=== PATIENT | female | born 1995 | race Asian ===

== ENCOUNTER 2020-05-19 10:00 | Inpatient (IN) | payer OTHER ==
[~2020-05-19] VITALS: Ht 167.6 cm; Wt 60.0 kg
[2020-05-19] MEDS ORDERED: DOXY1CAP60 PO (10:22)
[2020-05-19 11:19] LABS: HEMOGLOBIN 10.9 g/dl (12.0-15.5); MEAN CORPUSCULAR HEMOGLOBIN 19.5 pg (27.0-33.0); MEAN CORPUSCULAR HGB CONC 30.3 g/dl (32.0-36.5); MEAN CORPUSCULAR VOLUME 64.3 fl (80.0-96.0); PLATELET COUNT, AUTOMATED 268 10^3/uL (150-450); WHITE BLOOD COUNT 6.1 10^3/uL (4.0-10.0)
[2020-05-19 11:40] LABS: HCG, SERUM QUALITATIVE NEGATIVE (NEGATIVE)
[2020-05-19 11:51] LABS: ALBUMIN 4.2 GM/DL (3.2-5.2); ALT/SGPT 16 U/L (12-78); BILIRUBIN,DIRECT 0.2 MG/DL (0.0-0.2); BILIRUBIN,TOTAL 0.9 MG/DL (0.2-1.0); BLOOD UREA NITROGEN 15 MG/DL (7-18); CALCIUM LEVEL 9.4 MG/DL (8.5-10.1); CARBON DIOXIDE LEVEL 24 MEQ/L (21-32); CHLORIDE LEVEL 107 MEQ/L (98-107); CREATININE FOR GFR 0.73 MG/DL (0.55-1.30); ETHYL ALCOHOL (ETHANOL) < 0.003 % (0.000-0.010); GLOMERULAR FILTRATION RATE > 60.0 (>60); GLUCOSE, FASTING 70 MG/DL (70-100); POTASSIUM SERUM 3.9 MEQ/L (3.5-5.1); SALICYLATE LEVEL < 1.7 MG/DL (5.0-30.0); SODIUM LEVEL 139 MEQ/L (136-145); TOTAL PROTEIN 7.5 GM/DL (6.4-8.2)
[2020-05-19 11:59] LABS: ACETAMINOPHEN LEVEL < 2.0 UG/ML (10.0-30.0)
[2020-05-19 14:23] LABS: AMPHETAMINES LEVEL URINE NEGATIVE (NEGATIVE); BARBITURATES URINE NEGATIVE (NEGATIVE); BENZODIAZEPINES URINE NEGATIVE (NEGATIVE); CANNABINOIDS URINE NEGATIVE (NEGATIVE); COCAINE METABOLITE URINE NEGATIVE (NEGATIVE); METHADONE URINE NEGATIVE (NEGATIVE); OPIATES URINE NEGATIVE (NEGATIVE); PHENCYCLIDINE URINE NEGATIVE (NEGATIVE)
[2020-05-19] MEDS ORDERED: MAALOX 30 ML SUSP *UDC PO PRN (18:35)
[2020-05-19] MEDS ORDERED: MOM 30ML SUSPENSION UDC PO PRN (18:35)
[2020-05-19] MEDS ORDERED: ACETAMINOPHEN TAB 650MG DOSE (2X325MG) PO PRN (18:35)
[2020-05-19 20:04] VITALS: BP 103/59
[2020-05-20] MEDS: traZODone 50 MG TAB PO PRN (00:18)
[2020-05-20 06:41] VITALS: BP 104/55
--- NOTE | 2020-05-20 10:53 | MHHPE ---
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 HISTORY OF PRESENT ILLNESS: Patient reported that she has been stressed out at work because of a lot of work, unable to complete and there is no help provided to her. She is sleep deprived. She reportedly told people that she would hang herself because of depression due to overwork. Patient was admitted to a hospital in [place] about a month ago and she was discharged Pt thinks she was prescribed no medications . Currently her sleep is poor. Her energy level is low. She talks fast. Denies any manic episodes. Denies grandiosity, racing thoughts, however, she is easily irritable. Denies any impulsive behavior. Denies any psychotic symptoms or anxiety. PAST PSYCHIATRIC HISTORY: She was hospitalized once about a month ago for suicidal ideation. Denies taking any medications. SUBSTANCE ABUSE HISTORY: Denies use of alcohol or any drugs. SUICIDAL HISTORY: Denies suicidal attempts in the past. PAST MEDICAL HISTORY: Denies medical issues. Denies any history of head injury, seizure disorder. FAMILY HISTORY: Denies history of mental illness. PERSONAL HISTORY: She was born in [place], [place], and raised in [place]. She completed college graduation. She has two sisters. No history of abuses. MENTAL STATUS EXAMINATION: She is a thin built, of average height, female. Cooperative, however, easily irritable, somewhat angry at times and tearful at times. Speech is pressured, circumstantial. Psychomotor activity is normal. Made good eye contact. Mood is depressed. Affect is labile. Thought content preoccupied with helplessness, hopelessness, however, denied any suicidal thoughts. Insight and judgment are limited. Memory immediate, remote, recent are good. VITALS: Blood pressure 104/55, temperature 97.2, pulse 53, pulse oximetry 100%. LABS: CBC within normal limits. Hemoglobin 11; slightly low. CMP within normal limits. HCG negative. Toxicology was negative. REVIEW OF SYSTEMS: Constitutional: Denied any night sweats, fever. HEENT: Denies headache, sore throat, epistaxis. Respiratory: Denies any shortness of breath or cough. CVS: Denied chest pain or palpitations. Gastroenterology: Denied any pain. Genitourinary: Patient denies any hematuria or dysuria. Neurology: Denies any headache, dizziness or numbness. Bones and Joints: Normal. DIAGNOSIS: Depressive disorder NOS, rule out major depressive disorder. PLAN: Ad[facility]. She will be seen by hospitalist for medical needs. She will be kept on suicide precaution. Patient will be seen by case management and home health care social worker. Patient will attend activities. She will go to groups and individual therapy. MEDICATIONS: Remeron, Mirtazapine 15 mg at night. Continue p.r.n. medications. ESTIMATED LENGTH OF STAY: 4 to 5 days. TIME SPENT ON THE PATIENT: 45 minutes. [facility]
--- NOTE | 2020-05-20 15:11 | HPEPDOC ---
[facility] Medical History & Physical Date of Admission May 19, 2020 Date of Service: May 20, 2020 Attending Physician: Katja Kingsley MD History and Physical MEDICAL CONSULT HISTORY OF PRESENT ILLNESS: Patient is a 21-year-old female with past medical history of depression, suicidal ideation admitted to inpatient mental health unit on 05/19/2020 with the chief diagnosis of unspecified depressive disorder, suicidal ideation. The patient states she has had increased anxiety, decreased appetite decreased mood, feelings of helplessness and hopelessness, poor sleep, poor concentration and has been sleep deprived in the days prior to her coming to mental health. She h as had increased thoughts of suicide with urges of hitting herself due to work stress. She says she is frustrated because she has told several people about her issues at work and nothing seems to be getting done. She is also had a prior inpatient mental health stay in the past for depression. On exam today the patient admitted to the above-mentioned symptoms/signs. She denies homicidal ideation, paranoia, visual hallucinations, auditory hallucinations. Labs were unremarkable, vital signs were stable. REVIEW OF SYSTEMS: Neg except mentioned above PAST MEDICAL HISTORY: Depression, hx of suicidal ideations PAST SURGICAL HISTORY: None FAMILY HISTORY: Father: healthy. alive Mother: healthy. alive SOCIAL HISTORY: Denies smoking, alcohol or drug use history ALLERGIES: Please see below. HOME MEDICATIONS: Please see below. PHYSICAL EXAMINATION: VS Please see below CONSTITUTIONAL: No acute distress, resting comfortably, AAO x 3 EYES: PERRLA, EOM intact HENT, MOUTH: Normocephalic, atraumatic, moist mucous membranes NECK: SUPPLE, no JVD, no lymphadenopathy, no carotid bruit CV: Regular rate and rhythm, S1S2 normal, no murmurs/rubs/gallops RESPIRATORY: Clear to auscultation bilaterally, no rales/rhonchi/wheezes GI: BS positive in 4 quadrants, soft, nontender, nondistended, no rebound or guarding, no organomegaly : Deferred MUSCULOSKELETAL: Normal ROM. No cyanosis, clubbing, swelling, joint deformity, extremity edema INTEGUMENTARY: Intact, no rashes, no lesions, no erythema NEUROLOGIC: Cranial Nerves II-XII are intact, no focal deficits PSYCHIATRIC: Depressed mood, flat affect LABORATORY DATA: Please see below IMAGING: None ASSESSMENT: 21-year-old female with past medical history of depression, suicidal ideation admitted to inpatient mental health unit on 05/19/2020 with the chief diagnosis of unspecified depressive disorder, suicidal ideation. PLAN: Unspecified depressive disorder, suicidal ideation with plan -Plan per psych DISPOSITION: Thank you kindly for this consult. At this time will sign off on patient's case. If we are needed in the future please do not hesitate to call again to reconsult. Vital Signs Vital Signs Date Time Temp Pulse Resp B/P (MAP) Pulse Ox O2 Delivery O2 Flow Rate FiO2 05/20/20 06:41 97.2 53 16 104/55 (71) 100 Room Air Laboratory Data Microbiology Microbiology 05/19/20 Respiratory Virus Panel (PCR) (LINDSAY) - Final, Complete Home Medications Scheduled Doxycycline Monohydrate (Doxycycline) 50 Mg Capsule, 50 MG PO BIDWM Allergies Coded Allergies: No Known Allergies (Unverified , 05/19/20) A-FIB/CHADSVASC A-FIB History Current/History of A-Fib/PAF?: No Current PO Anticoag Therapy: No Age/Risk Factor Scoring CHADSVASC: CHADSVASC Response (Comments) Value Age Risk Factor Age < 65 years old 0 Gender Risk Factor Female 1 Hx of CHF No 0 Hx of HTN No 0 Hx of Stroke/TIA/or VTE No 0 Hx of Diabetes No 0 Hx of Vascular Disease No 0 Total 1 Treatment Treatment ordered: NONE Other anticoagulant ordered: none Katja Kingsley MD May 20, 2020 15:11
[2020-05-20 19:53] VITALS: BP 109/70
[2020-05-20] MEDS ORDERED: MIRTAZAPINE 15 MG TAB PO SCH (21:00)
--- NOTE | 2020-05-21 07:45 | IPNPDOC ---
Date Seen The patient was seen on 05/21/20. Progress Note SUBJECTIVE: I was called by nursing as patient has complained about "throbbing" vaginal pain, states it be lower in the vaginal tract near opening/urethra. I had a conference with nurse Samaria and patient over the phone on 05/21/20 at 7:30 AM. Patient states that pain is new since 05/19/20 and worsened over night. Has nexplanon implant. She denies sexual partners ever, states she is a virgin. Denies anything being inserted into vagina, dysuria, bleeding, itching, redness, burning but does admit to some yellow discharge. Will order UA, GC/chlamydia urine to start. Will f/u on testing. VS, I&O, 24H, Fishbone Vital Signs/I&O Vital Signs Date Time Temp Pulse Resp B/P (MAP) Pulse Ox O2 Delivery O2 Flow Rate FiO2 05/20/20 19:53 98.6 88 14 109/70 (83) 05/20/20 06:41 100 Room Air Laboratory Data Microbiology Microbiology 05/19/20 Respiratory Virus Panel (PCR) (LINDSAY) - Final, Complete Katja Kingsley MD May 21, 2020 07:45
[2020-05-21 08:05] VITALS: BP 99/59
[2020-05-21] MEDS ORDERED: FLUoxetine 10 MG CAP PO ONE (13:10)
[2020-05-21 16:53] VITALS: BP 107/55
[2020-05-21 20:23] LABS: CHLAMYDIA DNA AMPLIFICATION NEGATIVE (NEGATIVE); GC DNA AMPLIFICATION NEGATIVE (NEGATIVE)
[2020-05-21] MEDS: traZODone 50 MG TAB PO PRN (20:26)
[2020-05-22 06:00] VITALS: BP 109/57
--- NOTE | 2020-05-22 09:12 | IPNPDOC ---
Date Seen The patient was seen on 05/22/20. Progress Note SUBJECTIVE: UA positive, UCx sent and will f/u. Started on ceftin PO BID and will tailor abx if needed when sensitivities return. VS, I&O, 24H, Fishbone Vital Signs/I&O Vital Signs Date Time Temp Pulse Resp B/P (MAP) Pulse Ox O2 Delivery O2 Flow Rate FiO2 05/22/20 06:00 98.2 51 14 109/57 (74) 97 05/21/20 08:05 Room Air Laboratory Data 24H LABS Laboratory Tests 2 05/21/20 18:00: Urine Color YELLOW, Urine Appearance CLOUDYH, Urine pH 5.0, Urine Specific [place] 1.028, Urine Protein 1+H, Urine Glucose (UA) NEGATIVE, Urine Ketones T RACEH, Urine Blood 1+H, Urine Nitrite NEGATIVE, Urine Bilirubin NEGATIVE, Urine Urobilinogen 0.2, Urine Leukocyte Esterase 3+H, Urine WBC (Auto) 132H, Urine RBC (Auto) 8H, Urine Hyaline Casts (Auto) 0, Urine Bacteria (Auto) 1+H, Urine Squamous Epithelial Cells 16, Urine Amorphous Sediment SMALLH, Urine Mucus (Auto) LARGE, Urine Sperm (Auto) , Chlamydia trachomatis DNA (SUHAIL) NEGATIVE, Neisseria gonorrhoeae DNA (SUHAIL) NEGATIVE, Trichomonas vaginalis (PCR) NOT DETECTED Microbiology Microbiology 05/21/20 Urine Culture, Received Pending 05/19/20 Respiratory Virus Panel (PCR) (LINDSAY) - Final, Complete Katja Kingsley MD May 22, 2020 09:12
[2020-05-22] MEDS: FLUoxetine 10 MG CAP PO SCH (09:32)
[2020-05-22] MEDS: CEFUROXIME 500 MG TAB PO SCH ×2 (11:44→20:13)
--- NOTE | 2020-05-22 13:48 | MHIPN ---
[facility] PROGRESS NOTE DATE: 05/21/2020 CHIEF COMPLAINT: "You are not listening to me. I want one-to-one treatment. 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 Patient was recently, about a month ago, admitted to a psychiatric hospital in [place]. Patient has been complaining about the hospital, that she was admitted, the place she was working, reports that they are making her more work, they do not listen to her and she reports that she is tired. Patient has been angry since her admission. She makes mostly oppositional statements. She reports she does not want to attend any groups and they are not helping her at all. She stays in her room. She reported to me that she had some tingling sensation in her feet after she started taking the medication. MENTAL STATUS EXAMINATION: Casually dressed, staying in her room. Makes poor eye contact. Denied any auditory or visual hallucinations. Denied suicidal or homicidal ideas. Mood is depressed. Affect is appropriate for the mood. She sometimes is labile. VITAL SIGNS: Temperature 99.2, pulse 71, respirations 18, blood pressure 99/59, pulse oximetry 97. LABORATORY DATA: CBC within normal limits. CMP within normal limits. Toxicology was negative. DIAGNOSES: 1. Depressive mood disorder, unspecified. 2. Rule out major depressive disorder. PLAN: 1. Discontinue Remeron. 2. Place her on fluoxetine 10 mg in the morning. ESTIMATED LENGTH OF STAY: 4-5 days. TIME SPENT: 25 minutes.
--- NOTE | 2020-05-22 14:46 | MHIPN ---
[facility] PROGRESS NOTE DATE: 05/22/2020 CHIEF COMPLAINT: "I don't want to talk to you." SUBJECTIVE: Patient laying in her bed, not willing to go to the activity room, not willing to interact with her peers. 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 Patient reported that she has been overworked, the stress at work making her depressed. She thinks nobody cares for her. She had one previous psychiatric hospitalization about 30 days ago. She stayed there about eight days. It was in [place]. She was inpatient for eight days. Reports she was not on any medications. Patient initially was placed on Remeron, but she complained of some vague side effects, so medication was changed to fluoxetine. Patient is compliant with her medication. MENTAL STATUS EXAMINATION: Casually dressed. Personal hygiene is good. Oppositional. Makes poor eye contact. Psychomotor activity is normal. Mood is depressed. Affect is labile. Speech: Rate, rhythm, volume are good. Denied any auditory or visual hallucinations. Denied suicidal or homicidal ideas. Memory: Immediate, remote, recent are good. Attention is good. VITAL SIGNS: Temperature 98.2, pulse 51, respiratory rate 14, blood pressure 109/57, pulse oximetry 97. LABORATORY DATA: CBC within normal limits. Hemoglobin is slightly low, 10.9. CMP within normal limits. Toxicology was negative. DIAGNOSES: 1. Depressive disorder, not otherwise specified. 2. Rule out major depressive disorder. PLAN: 1. Continue fluoxetine 10 mg once daily 2. Continue individual, group and milieu therapy. ESTIMATED LENGTH OF STAY: 3-4 days. TIME SPENT: 25 minutes.
[2020-05-22] MEDS: traZODone 50 MG TAB PO PRN (20:13)
[2020-05-22] MEDS ORDERED: MIRTAZAPINE 7.5MG PER 1/2 TABLET PO PRN (22:05)
[2020-05-23 06:36] VITALS: BP 118/62
[2020-05-23] MEDS: FLUoxetine 10 MG CAP PO SCH (09:25)
[2020-05-23] MEDS: CEFUROXIME 500 MG TAB PO SCH ×3 (09:26→22:06)
--- NOTE | 2020-05-23 15:02 | MHIPNPDOC ---
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 Patient was recently, about a month ago, admitted to a psychiatric hospital in [place]. Patient has been complaining about the hospital, that she was admitted, the place she was working, reports that they are making her more work, they do not listen to her and she reports that she is tired. Patient has been angry since her admission. She makes mostly oppositional statements. She reports she does not want to attend any groups and they are not helping her at all. She stays in her room. She reported to me that she had some tingling sensation in her feet after she started taking the medication.She is more cooperative. MENTAL STATUS EXAMINATION: Casually dressed, staying in her room. Makes poor eye contact. Denied any auditory or visual hallucinations. Denied suicidal or homicidal ideas. Mood is euthymic. Affect is appropriate for the mood. . LABORATORY DATA: CBC within normal limits. CMP within normal limits. Toxicology was negative. DIAGNOSES: 1. Depressive mood disorder, unspecified. 2. Rule out major depressive disorder. PLAN: 1. continue Remeron 7.5 mg Hs 2. continue fluoxetine 10 mg in the morning. ESTIMATED LENGTH OF STAY: 4-5 days. TIME SPENT: 25 minutes.HISTORY: Vital Signs Vital Signs Date Time Temp Pulse Resp B/P (MAP) Pulse Ox O2 Delivery O2 Flow Rate FiO2 05/23/20 06:36 97.9 73 12 118/62 (80) 99 Room Air Current Medications Current Medications Medications (Trade) Dose Ordered Sig/Quin Route PRN Reason Start Time Stop Time Status Last Admin Dose Admin Acetaminophen (Tylenol Tab) 650 mg Q6HP PRN PO HEADACHE or DISCOMFORT 05/19/20 18:35 Al Hydrox/Mg Hydrox/Simethicone (Mylanta) 30 ml Q4HP PRN PO HEARTBURN/INDIGESTION 05/19/20 18:35 Cefuroxime Axetil (Ceftin) 500 mg BID PO 05/22/20 09:00 05/23/20 09:26 Fluoxetine HCl (PROzac) 10 mg DAILY PO 05/22/20 09:00 05/23/20 09:25 Home Med (Med Rec Complete!) ASDIRECTED XX 05/19/20 15:20 05/19/20 15:19 DC Magnesium Hydroxide (Milk Of Magnesia) 30 ml DAILYPRN PRN PO CONSTIPATION 05/19/20 18:35 Mirtazapine (Remeron) 7.5 mg QHSP PRN PO INSOMNIA 05/22/20 22:05 05/22/20 22:45 Mirtazapine (Remeron) 15 mg QHS PO 05/20/20 21:00 05/21/20 13:10 DC 05/20/20 21:08 Trazodone HCl (Desyrel) 50 mg QHSP PRN PO INSOMNIA 05/19/20 18:35 05/22/20 22:05 DC 05/22/20 20:13 Allergies Coded Allergies: No Known Allergies (Unverified , 05/19/20) JULIUS GOODMAN MD May 23, 2020 15:02
[2020-05-23 16:00] VITALS: BP 103/60
[2020-05-24 06:57] VITALS: BP 96/60
[2020-05-24] MEDS ORDERED: MIRT-62 PO (08:13)
[2020-05-24] MEDS ORDERED: FLUO10CA16 PO (08:13)
[2020-05-24] MEDS: CEFUROXIME 500 MG TAB PO SCH (09:02)
[2020-05-24] MEDS: FLUoxetine 10 MG CAP PO SCH (09:02)
--- NOTE | 2020-05-24 10:30 | MHDS ---
[facility] DISCHARGE SUMMARY DATE OF ADMISSION: 05/19/2020 DATE OF DISCHARGE: 05/24/2020 DIAGNOSIS: Depressive disorder, not otherwise specified, rule out major depressive disorder. 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 Patient recently was discharged from psychiatric hospital in [place] a month ago. For details of HPI, past psychiatric history, substance abuse history, medical history, and social history, please refer to the initial evaluation. MENTAL STATUS EXAMINATION: She is neatly dressed, cooperative, made good eye contact. Speech rate, rhythm, and volume are good. Mood is euthymic. Affect is appropriate for the mood. Denied any auditory or visual hallucinations. Denied any suicidal or homicidal ideas. Memory: Immediate, remote, and recent are good. Attention is good. Insight and judgment are fair to good. LABORATORY DATA: CBC within normal limits. CMP within normal limits. Toxicology within normal limits. COURSE IN THE HOSPITAL: Patient initially was depressed, was not willing to talk to anybody. She was placed on fluoxetine 10 mg. She did not attend groups. However, she became more cooperative. Her sleep was disturbed. She was placed on Remeron 7.5 mg which helped her. She denied any suicidal thoughts at the time of discharge. She denied any side effect of the medications. PLAN: Plan is to discharge her to [facility]. Follow up at [facility]. DISCHARGE MEDICATIONS: 1. Remeron 7.5 mg at bedtime. 2. Fluoxetine 10 mg in the morning. TIME SPENT: Less than 30 minutes.
== END 2020-05-24 13:10 | disposition home or self-care (01) | DRG 881 ==
LOC: M ED 10:00 → M ED INP 18:34 → M PSY 20:13
PROVIDERS: ADMIT Psychiatry & Neurology Psychiatry; ATTEND Psychiatry & Neurology Psychiatry
DX: F32.9 Major depressive disorder, single episode, unspecified (principal); R45.851 Suicidal ideations; N39.0 Urinary tract infection, site not specified; Z79.899 Other long term (current) drug therapy